=== PATIENT | female | born 1940 | race Caucasian/White ===

== ENCOUNTER 2017-06-14 12:04 | Inpatient (IN) | payer MEDICARE, OTHER ==
[2017-06-14] MEDS ORDERED: Carboxymethylcellulose 0.5%/Glycerin 0.9% Ophth Soln 15 ML Bottle EYEBOTH PRN (17:22)
[2017-06-14] MEDS ORDERED: Carboxymethylcellulose Sodium 0.5% Ophth Soln 0.4 ML UD Box of 30 EYEBOTH PRN (17:22)
[2017-06-14] MEDS: Acetaminophen/HYDROcodone 325-10 MG Tab PO SCH ×2 (18:18→22:37)
[2017-06-14] MEDS: Acetaminophen 325 MG Tab PO SCH ×2 (18:21→22:37)
[2017-06-14] MEDS: Celecoxib 200 MG Cap PO SCH (21:44)
[2017-06-14] MEDS: Rivaroxaban 15 MG Tab PO SCH (21:44)
[2017-06-14] MEDS: Simvastatin 10 MG Tab PO SCH (21:52)
[2017-06-15] MEDS: Acetaminophen 325 MG Tab PO SCH ×4 (05:12→22:45)
[2017-06-15] MEDS: Acetaminophen/HYDROcodone 325-10 MG Tab PO SCH ×4 (05:13→22:45)
[2017-06-15] MEDS: Anastrozole 1 MG Tab PO SCH (08:59)
[2017-06-15] MEDS: Calcium Carbonate/Vitamin D3 1250 MG-200 Unit Tab PO SCH (08:59)
[2017-06-15] MEDS: Levothyroxine 150 MCG Tab PO SCH (08:59)
[2017-06-15] MEDS: Pantoprazole 40 MG Tab.CR PO SCH (08:59)
[2017-06-15] MEDS: Furosemide 40 MG Tab PO SCH (09:00)
[2017-06-15] MEDS: Polyethylene Glycol 3350 Powder 17 GM Packet PO SCH (09:00)
[2017-06-15] MEDS: Calcitriol 0.25 MCG Cap PO SCH (09:00)
[2017-06-15] MEDS: Celecoxib 200 MG Cap PO SCH ×2 (09:00→20:49)
[2017-06-15] MEDS: Rivaroxaban 15 MG Tab PO SCH ×2 (09:01→20:49)
--- NOTE | 2017-06-15 09:28 | PCM.HP ---
H&P History of Present Illness - General Date of Service: 06/15/17 Admit Problem/Dx: Admission Diagnosis/Problem Admission Diagnosis/Problem Arthroplasty of knee Source of Information: Patient, Old Records History Limitations: Reports: No Limitations - History of Present Illness Initial Comments - Free Text/Narative: This is a 76-year-old female [facility] which was been admitted to the transitional care unit] sitting bed] for physical training and rehabilitation. She had right knee total replacement recently in [place]. She complains of mild pain and soreness but is otherwise healthy. Has a history of morbid obesity, obstructive sleep apnea and hyperlipidemia well controlled. Right Knee Pain Score (Numeric/FACES): 6 - Related Data Allergies/Adverse Reactions: Allergies Allergy/AdvReac Type Severity Reaction Status Date / Time magnesium Allergy Diarrhea Verified 06/14/17 14:22 Home Medications: Home Meds Acetaminophen [Tylenol] 325 mg PO Q6H 06/14/17 [History] Anastrozole [Arimidex] 1 mg PO DAILY 06/14/17 [History] [place]/Mag Citrate 20mg/100mg 2 tab PO DAILY 06/14/17 [History] Calcitriol 0.5 mcg PO DAILY 06/14/17 [History] Calcium Carbonate/Vitamin D3 [Calcium 600 + Vit D 200] 2 tab PO DAILY 06/14/17 [ History] Carboxymethylcellulos/Glycerin [Refresh Optive] 1 drop EYEBOTH BEDTIME PRN 06/14 [History] Carboxymethylcellulose Sodium [Refresh Plus 0.5% Ophth Soln] 1 - 2 drp EYEBOTH ASDIRECTED PRN 06/14/17 [History] Celecoxib [CeleBREX] 200 mg PO BID 06/14/17 [History] Eyelid Cleanser Comb No.7 [Ocusoft Lid Scrub] 1 each TP DAILY 06/14/17 [History] Furosemide [Lasix] 40 mg PO DAILY 06/14/17 [History] Hydrocodone/Acetaminophen [Hydrocodon-Acetaminophn 10-325] 1 tab PO Q6H [History] Levothyroxine 150 mcg PO ACBREAKFAST 06/14/17 [History] Pantoprazole [ProTONIX] 40 mg PO ACBREAKFAST 06/14/17 [History] Polyethylene Glycol 3350 [MiraLAX] 17 gm PO DAILY 06/14/17 [History] Rivaroxaban [Xarelto] 15 mg PO Q12H 06/14/17 [History] Sennosides/Docusate Sodium [Senna S Tablet] 1 tab PO BID 06/14/17 [History] Simvastatin [Zocor] 5 mg PO BEDTIME 06/14/17 [History] Zoledronic Acid [Zometa] 1 dose IV ASDIRECTED 06/14/17 [History] fentaNYL [Duragesic] 12 mcg TD Q72H 06/14/17 [History] Past Medical History HEENT History: Reports: None Cardiovascular History: Reports: High Cholesterol Other Cardiovascular History: "enlarged hear", peripheral edema Respiratory History: Reports: Other (See Below) Other Respiratory History: obstructive sleep apnea uses CPAP, recent hx of PE in 01/15 was on Xarelto which was held 1 1/2wk before surgery and restarted post op Other OB/BYN History: hysterectomy Musculoskeletal History: Reports: Arthritis Other Neuro History: right arm numbness due to thyroidectomy and lymph node removal--states BP and lab work can be taken from this arm Endocrine/Metabolic History: Reports: Hypothyroidism Other Oncologic History: thyroid, 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 Other Dermatologic History: eczema right ear - Past Surgical History HEENT Surgical History: Reports: Cataract Surgery Other HEENT Surgeries/Procedures: bilateral cataract, dry eyes Cardiovascular Surgical History: Reports: None Respiratory Surgical History: Reports: None GI Surgical History: Reports: Cholecystectomy Endocrine Surgical History: Reports: Thyroidectomy, Other (See Below) Other Endocrine Surgeries/Procedures: thyroidectomy with 60 lympth nodes removed Neurological Surgical History: Reports: None Musculoskeletal Surgical History: Reports: Knee Replacement Other Musculoskeletal Surgeries/Procedures:: achilles tendon repair, bilteral knee replacement, right shoulder replacement Social & Family History - Family History Endocrine/Metabolic: Reports: Diabetes, type II - Tobacco Use Smoking Status *Q: Never Smoker Second Hand Smoke Exposure: No - Caffeine Use Caffeine Use: Reports: None - Recreational Drug Use Recreational Drug Use: No H&P Review of Systems - Review of Systems: Review Of Systems: ROS reveals no pertinent complaints other than HPI. Exam - Exam Exam: See Below - Vital Signs Vital Signs: Last Vital Signs Temp 99.2 F 06/14/17 14:15 Pulse 85 06/14/17 14:15 Resp 20 06/14/17 14:15 BP 116/64 06/14/17 14:15 Pulse Ox 92 L 06/14/17 14:15 Weight: 122.47 kg - Exam General: Alert, Oriented, 4 HEENT: PERRLA, Hearing Intact, Mucosa Moist & [place], Nares Patent, Normal Nasal Septum, Posterior Pharynx Clear, Conjunctiva Clear, EOMI, EACs Clear, TMs Clear Neck: Supple, Trachea Midline, 2 Lungs: Clear to Auscultation, Normal Respiratory Effort Cardiovascular: Regular Rate, Regular Rhythm GI/Abdominal Exam: Normal Bowel Sounds, Soft, Non-Tender, No Organomegaly, No Distention, No Abnormal Bruit, No Mass, Pelvis Stable (Female) Exam: Deferred Rectal (Female) Exam: Deferred Back Exam: Normal Inspection, Full Range of Motion, NT Extremities: Normal Inspection, Normal Range of Motion, Non-Tender, No Pedal Edema, Normal Capillary Refill Skin: Warm, Dry, Intact Neurological: Cranial Nerves Intact, Reflexes Equal Bilateral Neuro Extensive - Mental Status: Alert, Oriented x3, Normal Mood/Affect, Normal Cognition Neuro Extensive - Motor, Sensory, Reflexes: CN II-XII Intact, Normal Gait, Normal Reflexes Psychiatric: Alert, Normal Affect, Normal Mood *Q Meaningful Use (ADM) - VTE *Q VTE Criteria *Q: - Stroke *Q Stroke Criteria *Q: - AMI *Q AMI Criteria *Q: - Problem List (1) S/P knee replacement SNOMED Code(s): 119715083 ICD Code: Z96.659 - PRESENCE OF UNSPECIFIED ARTIFICIAL KNEE JOINT Status: Acute Current Visit: Yes (2) Obesities, morbid SNOMED Code(s): 962445875, 98479161788275 ICD Code: E66.01 - MORBID (SEVERE) OBESITY DUE TO EXCESS CALORIES Status: Acute Current Visit: Yes (3) KAMI (obstructive sleep apnea) SNOMED Code(s): 45292861 ICD Code: G47.33 - OBSTRUCTIVE SLEEP APNEA (ADULT) (PEDIATRIC) Status: Acute Current Visit: Yes (4) Hyperlipidemia SNOMED Code(s): 07566457 ICD Code: E78.5 - HYPERLIPIDEMIA, UNSPECIFIED Status: Acute Current Visit : Yes Qualifiers: Hyperlipidemia type: pure hypercholesterolemia Qualified Code(s): E78.00 - Pure hypercholesterolemia, unspecified; E78.0 - Pure hypercholesterolemia (5) History of pulmonary embolus (PE) SNOMED Code(s): 160657172 ICD Code: Z86.711 - PERSONAL HISTORY OF PULMONARY EMBOLISM Status: Acute Current Visit: Yes Problem List Initiated/Reviewed/Updated: Yes Orders Last 24hrs: Active Orders 24 hr Category Date Time Status Admission Status [Patient Status] [ADT] Routine ADT 06/14/17 13:17 Active Elevate Extremity [RC] BID Care 06/14/17 16:00 Active Height and Weight [RC] MO Care 06/14/17 17:21 Active May Shower [RC] MOTH Care 06/14/17 14:54 Active Oxygen Therapy [RC] PRN Care 06/14/17 17:21 Active Up With Assistance [RC] ASDIRECTED Care 06/14/17 17:21 Active VTE/DVT Education [RC] Per Unit Routine Care 06/14/17 17:21 Active Vital Signs [RC] 08 Care 06/14/17 17:21 Active Wound Care [RC] 08 Care 06/14/17 14:54 Active OT Evaluation and Treatment [CONS] Routine Cons 06/14/17 14:54 Active PT Evaluation and Treatment [CONS] Routine Cons 06/14/17 14:54 Active Regular Diet [DIET] Diet 06/14/17 Dinner Active Acetaminophen [Tylenol] Med 06/14/17 17:30 Active 325 mg PO Q6H Acetaminophen/HYDROcodone [[place] 325-10 MG] Med 06/14/17 17:30 Active 1 tab PO Q6H Anastrozole [Arimidex] Med 06/15/17 09:00 Active 1 mg PO DAILY Calcitriol [Rocaltrol] Med 06/15/17 09:00 Active 0.5 mcg PO DAILY Calcium Carbonate/Vitamin D3 [Calcium Carbonate/Vitamin Med 06/15/17 09:00 Active D 1250 MG-200 Unit] 2 tab PO DAILY Carboxymethylcellulos/Glycerin [Refresh Optive] Med 06/14/17 17:22 Active 0 ml EYEBOTH BEDTIME PRN Carboxymethylcellulose Sodium [Refresh Plus 0.5%] Med 06/14/17 17:22 Active 0 each EYEBOTH ASDIRECTED PRN Celecoxib [CeleBREX] Med 06/14/17 21:00 Active 200 mg PO BID Docusate Sodium/Sennosides [Senna Plus] Med 06/14/17 21:00 Active 1 tab PO BID Eyelid Cleanser [Ocusoft Lid Scrub Plus] Med 06/15/17 09:00 Active 1 pad TP DAILY Furosemide [Lasix] Med 06/15/17 09:00 Active 40 mg PO DAILY Levothyroxine Med 06/15/17 07:30 Active 150 mcg PO ACBREAKFAST Pantoprazole [ProTONIX] Med 06/15/17 07:30 Active 40 mg PO ACBREAKFAST Polyethylene Glycol 3350 [MiraLAX] Med 06/15/17 09:00 Active 17 gm PO DAILY Rivaroxaban [Xarelto] Med 06/14/17 21:00 Active 15 mg PO Q12H Simvastatin [Zocor] Med 06/14/17 22:00 Active 5 mg PO BEDTIME Zoledronic Acid [Zometa] Med 11/20/17 09:00 Active 1 dose IV Q180D fentaNYL [Duragesic] Med 06/16/17 09:00 Active 12 mcg TRDERM Q72H Ice Therapy [OM.PC] Routine Oth 06/14/17 14:54 Ordered Weight bearing status [OM.PC] Routine Oth 06/14/17 14:54 Ordered Resuscitation Status Routine Resus Stat 06/14/17 17:21 Ordered Medication Orders Acetaminophen (Tylenol) 325 mg PO Q6H MISAEL Last Admin: 06/15/17 05:12 Dose: 325 mg Admin: 06/14/17 22:37 Dose: 325 mg Admin: 06/14/17 18:21 Dose: 325 mg Hydrocodone Bitart/Acetaminophen ([place] 325-10 Mg) 1 tab PO Q6H MISAEL Last Admin: 06/15/17 05:13 Dose: 1 tab Admin: 06/14/17 22:37 Dose: 1 tab Admin: 06/14/17 18:18 Dose: 1 tab Anastrozole (Arimidex) 1 mg PO DAILY [facility]ISA[facility] Last Admin: 06/15/17 08:59 Dose: 1 mg Artificial Tears (Refresh Plus 0.5%) 0 each EYEBOTH ASDIRECTED PRN PRN Reason: Dry Eyes Last Admin: 06/15/17 09:02 Dose: 1 drop Calcitriol (Rocaltrol) 0.5 mcg PO DAILY [facility] Last Admin: 06/15/17 09:00 Dose: 0.5 mcg Calcium Carbonate (Calcium Carbonate/Vitamin D 1250 Mg-200 Unit) 2 tab PO DAILY [facility] Last Admin: 06/15/17 08:59 Dose: 2 tab Carboxymethylcellulose (Refresh Optive) 0 ml EYEBOTH BEDTIME PRN PRN Reason: Dry Eyes Celecoxib (Celebrex) 200 mg PO BID [facility] Last Admin: 06/15/17 09:00 Dose: 200 mg Admin: 06/14/17 21:44 Dose: 200 mg Eye Cleanser (Ocusoft Lid Scrub Plus) 1 pad TP DAILY [facility] Fentanyl (Duragesic) 12 mcg TRDERM Q72H [facility] Furosemide (Lasix) 40 mg PO DAILY [facility] Last Admin: 06/15/17 09:00 Dose: 40 mg Levothyroxine Sodium (Levothyroxine) 150 mcg PO ACBREAKFAST [facility] Last Admin: 06/15/17 08:59 Dose: 150 mcg Non-Formulary Medication (Zoledronic Acid [Zometa]) 1 dose IV Q180D [facility] Pantoprazole Sodium (Protonix) 40 mg PO ACBREAKFAST [facility] Last Admin: 06/15/17 08:59 Dose: 40 mg Polyethylene Glycol (Miralax) 17 gm PO DAILY [facility] Last Admin: 06/15/17 09:00 Dose: Not Given Rivaroxaban (Xarelto) 15 mg PO Q12H [facility] Last Admin: 06/15/17 09:01 Dose: 15 mg Admin: 06/14/17 21:44 Dose: 15 mg Senna/Docusate Sodium (Senna Plus) 1 tab PO BID [facility] Last Admin: 06/15/17 09:01 Dose: 1 tab Admin: 06/14/17 21:44 Dose: 1 tab Simvastatin (Zocor) 5 mg PO BEDTIME [facility] Last Admin: 06/14/17 21:52 Dose: 5 mg Assessment/Plan Comment:: We'll continue with physical strengthening. And the home medications. She's currently on 50 mg of Zestril to twice a day after 18 days according to the orthopedic guidelines will revert back to the 20 mg she takes for h/o PE. I will slowly started on aspirin. Pain is being controlled by Duragesic patch which be discontinued in 3 days she'll go to hydrocodone as needed.
[2017-06-15] MEDS: Eyelid Cleanser Pads, 30 per Box TP SCH (11:04)
[2017-06-15] MEDS: Aspirin 81 MG Tab.EC PO SCH (11:06)
[2017-06-15] MEDS: Simvastatin 10 MG Tab PO SCH (20:49)
[2017-06-16] MEDS: Acetaminophen/HYDROcodone 325-10 MG Tab PO SCH ×4 (05:57→23:59)
[2017-06-16] MEDS: Acetaminophen 325 MG Tab PO SCH ×4 (05:58→23:59)
[2017-06-16] MEDS: Levothyroxine 150 MCG Tab PO SCH (08:20)
[2017-06-16] MEDS: Pantoprazole 40 MG Tab.CR PO SCH (08:20)
[2017-06-16] MEDS ORDERED: fentaNYL 12 MCG/HR Transdermal Patch TRDERM SCH (09:00)
[2017-06-16] MEDS: Anastrozole 1 MG Tab PO SCH (10:35)
[2017-06-16] MEDS: Calcium Carbonate/Vitamin D3 1250 MG-200 Unit Tab PO SCH (10:36)
[2017-06-16] MEDS: Celecoxib 200 MG Cap PO SCH ×2 (10:37→21:05)
[2017-06-16] MEDS: Aspirin 81 MG Tab.EC PO SCH (10:40)
[2017-06-16] MEDS: Polyethylene Glycol 3350 Powder 17 GM Packet PO SCH ×2 (10:40→10:45)
[2017-06-16] MEDS: Furosemide 40 MG Tab PO SCH (10:40)
[2017-06-16] MEDS: Calcitriol 0.25 MCG Cap PO SCH (10:41)
[2017-06-16] MEDS: Eyelid Cleanser Pads, 30 per Box TP SCH (10:41)
[2017-06-16] MEDS: Rivaroxaban 15 MG Tab PO SCH ×2 (10:42→21:06)
[2017-06-16] MEDS: Simvastatin 10 MG Tab PO SCH (21:06)
[2017-06-17] MEDS: Acetaminophen/HYDROcodone 325-10 MG Tab PO SCH ×4 (05:59→22:42)
[2017-06-17] MEDS: Acetaminophen 325 MG Tab PO SCH ×4 (05:59→22:43)
[2017-06-17] MEDS: Pantoprazole 40 MG Tab.CR PO SCH (07:06)
[2017-06-17] MEDS: Levothyroxine 150 MCG Tab PO SCH (07:07)
[2017-06-17] MEDS: Anastrozole 1 MG Tab PO SCH (08:34)
[2017-06-17] MEDS: Polyethylene Glycol 3350 Powder 17 GM Packet PO SCH (08:35)
[2017-06-17] MEDS: Eyelid Cleanser Pads, 30 per Box TP SCH (08:35)
[2017-06-17] MEDS: Calcium Carbonate/Vitamin D3 1250 MG-200 Unit Tab PO SCH (08:35)
[2017-06-17] MEDS: Aspirin 81 MG Tab.EC PO SCH (08:35)
[2017-06-17] MEDS: Furosemide 40 MG Tab PO SCH (08:35)
[2017-06-17] MEDS: Celecoxib 200 MG Cap PO SCH ×2 (08:35→20:19)
[2017-06-17] MEDS: Calcitriol 0.25 MCG Cap PO SCH (08:36)
[2017-06-17] MEDS: Rivaroxaban 15 MG Tab PO SCH ×2 (08:36→20:20)
[2017-06-17] MEDS: Simvastatin 10 MG Tab PO SCH (20:21)
[2017-06-18] MEDS: Acetaminophen/HYDROcodone 325-10 MG Tab PO SCH ×3 (05:33→17:06)
[2017-06-18] MEDS: Acetaminophen 325 MG Tab PO SCH ×3 (05:34→17:06)
[2017-06-18] MEDS: Levothyroxine 150 MCG Tab PO SCH (07:20)
[2017-06-18] MEDS: Pantoprazole 40 MG Tab.CR PO SCH (07:23)
[2017-06-18] MEDS: Celecoxib 200 MG Cap PO SCH ×2 (09:04→21:14)
[2017-06-18] MEDS: Aspirin 81 MG Tab.EC PO SCH (09:04)
[2017-06-18] MEDS: Anastrozole 1 MG Tab PO SCH (09:04)
[2017-06-18] MEDS: Calcium Carbonate/Vitamin D3 1250 MG-200 Unit Tab PO SCH (09:04)
[2017-06-18] MEDS: Furosemide 40 MG Tab PO SCH (09:04)
[2017-06-18] MEDS: Polyethylene Glycol 3350 Powder 17 GM Packet PO SCH (09:05)
[2017-06-18] MEDS: Rivaroxaban 15 MG Tab PO SCH ×2 (09:05→21:16)
[2017-06-18] MEDS: Eyelid Cleanser Pads, 30 per Box TP SCH (09:05)
[2017-06-18] MEDS: Calcitriol 0.25 MCG Cap PO SCH (09:05)
[2017-06-18] MEDS: Simvastatin 10 MG Tab PO SCH (21:17)
[2017-06-19] MEDS: Acetaminophen/HYDROcodone 325-10 MG Tab PO SCH ×5 (00:05→22:31)
[2017-06-19] MEDS: Acetaminophen 325 MG Tab PO SCH ×5 (00:06→22:32)
[2017-06-19] MEDS: Levothyroxine 150 MCG Tab PO SCH (07:27)
[2017-06-19] MEDS: Pantoprazole 40 MG Tab.CR PO SCH (07:28)
[2017-06-19] MEDS: Calcium Carbonate/Vitamin D3 1250 MG-200 Unit Tab PO SCH (09:18)
[2017-06-19] MEDS: Aspirin 81 MG Tab.EC PO SCH (09:19)
[2017-06-19] MEDS: Celecoxib 200 MG Cap PO SCH ×2 (09:19→22:31)
[2017-06-19] MEDS: Furosemide 40 MG Tab PO SCH (09:19)
[2017-06-19] MEDS: Calcitriol 0.25 MCG Cap PO SCH (09:20)
[2017-06-19] MEDS: Polyethylene Glycol 3350 Powder 17 GM Packet PO SCH (09:20)
[2017-06-19] MEDS: Eyelid Cleanser Pads, 30 per Box TP SCH (09:20)
[2017-06-19] MEDS: Rivaroxaban 15 MG Tab PO SCH ×2 (09:21→22:31)
[2017-06-19] MEDS: Anastrozole 1 MG Tab PO SCH (09:24)
[2017-06-19] MEDS: Simvastatin 10 MG Tab PO SCH (22:31)
[2017-06-20] MEDS: Acetaminophen/HYDROcodone 325-10 MG Tab PO SCH (04:32)
[2017-06-20] MEDS: Acetaminophen 325 MG Tab PO SCH ×4 (04:34→23:08)
[2017-06-20] MEDS: Pantoprazole 40 MG Tab.CR PO SCH (07:37)
[2017-06-20] MEDS: Levothyroxine 150 MCG Tab PO SCH (07:37)
[2017-06-20] MEDS ORDERED: Ondansetron 4 MG Tab.DIS PO PRN (08:58)
[2017-06-20] MEDS: Calcium Carbonate/Vitamin D3 1250 MG-200 Unit Tab PO SCH (09:54)
[2017-06-20] MEDS: Anastrozole 1 MG Tab PO SCH (09:54)
[2017-06-20] MEDS: Celecoxib 200 MG Cap PO SCH ×2 (09:55→21:26)
[2017-06-20] MEDS: Furosemide 40 MG Tab PO SCH (09:55)
[2017-06-20] MEDS: Aspirin 81 MG Tab.EC PO SCH (09:55)
[2017-06-20] MEDS: Polyethylene Glycol 3350 Powder 17 GM Packet PO SCH (09:55)
[2017-06-20] MEDS: Eyelid Cleanser Pads, 30 per Box TP SCH (09:55)
[2017-06-20] MEDS: Calcitriol 0.25 MCG Cap PO SCH (09:56)
[2017-06-20] MEDS: Rivaroxaban 15 MG Tab PO SCH ×2 (09:56→21:26)
--- NOTE | 2017-06-20 16:43 | PCM.PN ---
- General Info Date of Service: 06/20/17 Admission Dx/Problem (Free Text): Pain has stiff right knee. Some nausea with the pain pill. - Patient Data Vitals - Most Recent: Last Vital Signs Temp 98.4 F 06/20/17 08:50 Pulse 62 06/20/17 08:50 Resp 20 06/20/17 08:50 BP 132/62 06/20/17 08:50 Pulse Ox 94 L 06/20/17 08:50 Weight - Most Recent: 270 lb I&O - Last 24 Hours: Intake & Output 06/20/17 06/20/17 06/20/17 06:59 14:59 22:59 Intake Total 880 Balance 880 Med Orders - Current: Current Medications Acetaminophen (Tylenol) 325 mg PO Q6H [facility] Last Admin: 06/20/17 12:15 Dose: 325 mg Hydrocodone Bitart/Acetaminophen ([place] 325-10 Mg) 1 tab PO Q6H PRN PRN Reason: Pain Anastrozole (Arimidex) 1 mg PO DAILY [facility] Last Admin: 06/20/17 09:54 Dose: 1 mg Artificial Tears (Refresh Plus 0.5%) 0 each EYEBOTH ASDIRECTED PRN PRN Reason: Dry Eyes Last Admin: 06/15/17 09:02 Dose: 1 drop Aspirin (Halfprin) 81 mg PO DAILY [facility] Last Admin: 06/20/17 09:55 Dose: 81 mg Calcitriol (Rocaltrol) 0.5 mcg PO DAILY [facility] Last Admin: 06/20/17 09:56 Dose: 0.5 mcg Calcium Carbonate (Calcium Carbonate/Vitamin D 1250 Mg-200 Unit) 2 tab PO DAILY [facility] Last Admin: 06/20/17 09:54 Dose: 2 tab Carboxymethylcellulose (Refresh Optive) 0 ml EYEBOTH BEDTIME PRN PRN Reason: Dry Eyes Last Admin: 06/17/17 08:36 Dose: 1 drop Celecoxib (Celebrex) 200 mg PO BID [facility] Stop: 06/22/17 09:01 Last Admin: 06/20/17 09:55 Dose: 200 mg Eye Cleanser (Ocusoft Lid Scrub Plus) 1 pad TP DAILY [facility] Last Admin: 06/20/17 09:55 Dose: Not Given Furosemide (Lasix) 40 mg PO DAILY [facility] Last Admin: 08/20/17 09:55 Dose: 40 mg Levothyroxine Sodium (Levothyroxine) 150 mcg PO ACBREAKFAST [facility] Last Admin: 06/20/17 07:37 Dose: 150 mcg Non-Formulary Medication (Zoledronic Acid [Zometa]) 1 dose IV Q180D [facility] Ondansetron HCl (Zofran Odt) 4 mg PO Q6H PRN PRN Reason: Nausea/Vomiting Last Admin: 06/20/17 09:52 Dose: 4 mg Pantoprazole Sodium (Protonix) 40 mg PO ACBREAKFAST [facility] Last Admin: 06/20/17 07:37 Dose: 40 mg Polyethylene Glycol (Miralax) 17 gm PO DAILY [facility] Last Admin: 06/20/17 09:55 Dose: Not Given Rivaroxaban (Xarelto) 15 mg PO Q12H [facility] Stop: 07/02/17 09:01 Last Admin: 06/20/17 09:56 Dose: 15 mg Senna/Docusate Sodium (Senna Plus) 1 tab PO BID [facility] Last Admin: 06/20/17 09:56 Dose: 1 tab Simvastatin (Zocor) 5 mg PO BEDTIME [facility] Last Admin: 06/19/17 22:31 Dose: 5 mg Discontinued Medications Hydrocodone Bitart/Acetaminophen ([place] 325-10 Mg) 1 tab PO Q6H [facility] Last Admin: 06/20/17 04:32 Dose: 1 tab Fentanyl (Duragesic) 12 mcg TRDERM Q72H [facility] Stop: 06/19/17 08:59 Last Admin: 06/16/17 10:38 Dose: 12 mcg Miscellaneous Information (Remove Patch) 1 ea TRDERM ONETIME ONE Stop: 06/19/17 09:01 Last Admin: 06/19/17 09:23 Dose: 1 ea Simvastatin (Zocor) 5 mg PO BEDTIME [facility] Last Admin: 06/14/17 22:07 Dose: Not Given - Exam General: Alert, Oriented, Cooperative Extremities: No Pedal Edema Skin: Other (WOund with no Erytema or wound drainage.) - Problem List & Annotations (1) S/P knee replacement SNOMED Code(s): 534409705 Code(s): Z96.659 - PRESENCE OF UNSPECIFIED ARTIFICIAL KNEE JOINT Status: Acute Current Visit: Yes - Problem List Review Problem List Initiated/Reviewed/Updated: Yes - My Orders Last 24 Hours: My Active Orders 06/20/17 08:58 Ondansetron [Zofran ODT] 4 mg PO Q6H PRN - Plan Plan:: Continue current care.
[2017-06-20] MEDS: Simvastatin 10 MG Tab PO SCH (21:26)
[2017-06-20] MEDS: Acetaminophen/HYDROcodone 325-10 MG Tab PO PRN (21:40)
[2017-06-21] MEDS: Acetaminophen 325 MG Tab PO SCH ×2 (06:28→13:37)
[2017-06-21] MEDS: Celecoxib 200 MG Cap PO SCH (08:06)
[2017-06-21] MEDS: Anastrozole 1 MG Tab PO SCH (08:06)
[2017-06-21] MEDS: Rivaroxaban 15 MG Tab PO SCH (08:06)
[2017-06-21] MEDS: Furosemide 40 MG Tab PO SCH (08:06)
[2017-06-21] MEDS: Aspirin 81 MG Tab.EC PO SCH (08:07)
[2017-06-21] MEDS: Calcium Carbonate/Vitamin D3 1250 MG-200 Unit Tab PO SCH (08:07)
[2017-06-21] MEDS: Calcitriol 0.25 MCG Cap PO SCH (08:07)
[2017-06-21] MEDS: Eyelid Cleanser Pads, 30 per Box TP SCH (08:08)
[2017-06-21] MEDS: Polyethylene Glycol 3350 Powder 17 GM Packet PO SCH (08:08)
[2017-06-21] MEDS: Acetaminophen/HYDROcodone 325-10 MG Tab PO PRN (08:10)
[2017-06-21] MEDS: Levothyroxine 150 MCG Tab PO SCH (08:24)
[2017-06-21] MEDS: Pantoprazole 40 MG Tab.CR PO SCH (08:24)
--- NOTE | 2017-06-21 09:52 | PCM.DCSUM1 ---
Discharge Summary - Hospital Course Free Text/Narrative:: Patient was placed in [place] for swing bed. Patient did well with PT/OT and was walking. She was anticoagulated was xeralto. Pain was controlled with Duragesic patch and hydrocodone. She met all her goals will be discharged to home with PT/OT/home health. Duragesic will be stopped and hydrocodone for pain. Brief History: This is a 76-year-old female [facility] which was been admitted to the transitional care unit] sitting bed] for physical training and rehabilitation. She had right knee total replacement recently in [place]. She complains of mild pain and soreness but is otherwise healthy. Has a history of morbid obesity, obstructive sleep apnea and hyperlipidemia well controlled. - Discharge Data Discharge Date: 06/21/17 Discharge Disposition: Home, W Home Health Agency 06 Condition: Good - Discharge Diagnosis/Problem(s) (1) S/P knee replacement SNOMED Code(s): 620169183 ICD Code: Z96.659 - PRESENCE OF UNSPECIFIED ARTIFICIAL KNEE JOINT Status: Acute Current Visit: Yes - Patient Summary/Data Consults: Consultations 06/14/17 14:54 OT Evaluation and Treatment [CONS] Routine Please Evaluate and Treat. OT Reason for Consult: Strengthening This query below is only for informational purposes and is not editable. Admission Diagnosis/Problem: Arthroplasty of knee PT Evaluation and Treatment [CONS] Routine Please Evaluate and Treat. PT Reason for Consult: Post op Ortho Surgery This query below is only for informational purposes and is not editable. Admission Diagnosis/Problem: Arthroplasty of knee 06/16/17 08:02 PT Evaluation and Treatment [CONS] Routine Please Evaluate and Treat. PT Reason for Consult: Other (Type Response) Special Instructions: CPM: PT to initiate and regulate This query below is only for informational purposes and is not editable. Admission Diagnosis/Problem: Arthroplasty of knee - Patient Instructions Diet: Regular Diet as Tolerated Activity: As Tolerated Driving: Do Not Drive Showering/Bathing: May Shower Notify Provider of: Increased Pain, Swelling and Redness, Drainage Other/Special Instructions: 1. Recheck with orthopedics [facility] scheduled appointment. 2. Home health/PT/OT in regards to medication management, home safety, rehabilitation for knee, these management. - Discharge Plan Prescriptions/Med Rec: Hydrocodone/Acetaminophen [Hydrocodon-Acetaminophn 10-325] 1 tab PO Q6H #60 tablet Rivaroxaban [Xarelto] 15 mg PO Q12H #22 tablet Home Medications: Home Meds Acetaminophen [Tylenol] 325 mg PO Q6H 06/14/17 [History] Anastrozole [Arimidex] 1 mg PO DAILY 06/14/17 [History] [place]/Mag Citrate 20mg/100mg 2 tab PO DAILY 06/14/17 [History] Calcitriol 0.5 mcg PO DAILY 06/14/17 [History] Calcium Carbonate/Vitamin D3 [Calcium 600 + Vit D 200] 2 tab PO DAILY 06/14/17 [ History] Carboxymethylcellulos/Glycerin [Refresh Optive] 1 drop EYEBOTH BEDTIME PRN 06/14 [History] Carboxymethylcellulose Sodium [Refresh Plus 0.5%] 1 - 2 drp EYEBOTH ASDIRECTED PRN 06/14/17 [History] Celecoxib [CeleBREX] 200 mg PO BID 06/14/17 [History] Eyelid Cleanser Comb No.7 [Ocusoft Lid Scrub] 1 each TP DAILY 06/14/17 [History] Furosemide [Lasix] 40 mg PO DAILY 06/14/17 [History] Levothyroxine 150 mcg PO ACBREAKFAST 06/14/17 [History] Pantoprazole [ProTONIX] 40 mg PO ACBREAKFAST 06/14/17 [History] Polyethylene Glycol 3350 [MiraLAX] 17 gm PO DAILY 06/14/17 [History] Sennosides/Docusate Sodium [Senna S Tablet] 1 tab PO BID 06/14/17 [History] Simvastatin [Zocor] 5 mg PO BEDTIME 06/14/17 [History] Zoledronic Acid [Zometa] 1 dose IV ASDIRECTED 06/14/17 [History] Hydrocodone/Acetaminophen [Hydrocodon-Acetaminophn 10-325] 1 tab PO Q6H #60 tablet 06/21/17 [Rx] Rivaroxaban [Xarelto] 15 mg PO Q12H #22 tablet 06/21/17 [Rx] Patient Handouts: Fall Prevention in Hospitals, Adult, Venous Thromboembolism Prevention - Discharge Summary/Plan Comment DC Time >30 min.: No - Patient Data Vitals - Most Recent: Last Vital Signs Temp 98.4 F 06/20/17 08:50 Pulse 62 06/20/17 08:50 Resp 20 06/20/17 08:50 BP 132/62 06/20/17 08:50 Pulse Ox 94 L 06/20/17 08:50 Weight - Most Recent: 270 lb Med Orders - Current: Current Medications Acetaminophen (Tylenol) 325 mg PO Q6H [facility] Last Admin: 06/21/17 06:28 Dose: 325 mg Hydrocodone Bitart/Acetaminophen ([place] 325-10 Mg) 1 tab PO Q6H PRN PRN Reason: Pain Last Admin: 06/21/17 08:10 Dose: 1 tab Anastrozole (Arimidex) 1 mg PO DAILY [facility] Last Admin: 06/21/17 08:06 Dose: 1 mg Artificial Tears (Refresh Plus 0.5%) 0 each EYEBOTH ASDIRECTED PRN PRN Reason: Dry Eyes Last Admin: 06/15/17 09:02 Dose: 1 drop Aspirin (Halfprin) 81 mg PO DAILY [facility] Last Admin: 06/21/17 08:07 Dose: 81 mg Calcitriol (Rocaltrol) 0.5 mcg PO DAILY [facility] Last Admin: 06/21/17 08:07 Dose: 0.5 mcg Calcium Carbonate (Calcium Carbonate/Vitamin D 1250 Mg-200 Unit) 2 tab PO DAILY [facility] Last Admin: 06/21/17 08:07 Dose: 2 tab Carboxymethylcellulose (Refresh Optive) 0 ml EYEBOTH BEDTIME PRN PRN Reason: Dry Eyes Last Admin: 06/17/17 08:36 Dose: 1 drop Celecoxib (Celebrex) 200 mg PO BID [facility] Stop: 06/22/17 09:01 Last Admin: 06/21/17 08:06 Dose: 200 mg Eye Cleanser (Ocusoft Lid Scrub Plus) 1 pad TP DAILY [facility] Last Admin: 06/21/17 08:08 Dose: 1 applic Furosemide (Lasix) 40 mg PO DAILY [facility] Last Admin: 06/21/17 08:06 Dose: 40 mg Levothyroxine Sodium (Levothyroxine) 150 mcg PO ACBREAKFAST [facility] Last Admin: 06/21/17 08:24 Dose: 150 mcg Non-Formulary Medication (Zoledronic Acid [Zometa]) 1 dose IV Q180D [facility] Ondansetron HCl (Zofran Odt) 4 mg PO Q6H PRN PRN Reason: Nausea/Vomiting Last Admin: 06/20/17 09:52 Dose: 4 mg Pantoprazole Sodium (Protonix) 40 mg PO ACBREAKFAST [facility] Last Admin: 06/21/17 08:24 Dose: 40 mg Polyethylene Glycol (Miralax) 17 gm PO DAILY [facility] Last Admin: 06/21/17 08:08 Dose: 17 gm Rivaroxaban (Xarelto) 15 mg PO Q12H [facility] Stop: 07/02/17 09:01 Last Admin: 06/21/17 08:06 Dose: 15 mg Senna/Docusate Sodium (Senna Plus) 1 tab PO BID [facility] Last Admin: 06/21/17 08:06 Dose: 1 tab Simvastatin (Zocor) 5 mg PO BEDTIME [facility] Last Admin: 06/20/17 21:26 Dose: 5 mg Discontinued Medications Hydrocodone Bitart/Acetaminophen ([place] 325-10 Mg) 1 tab PO Q6H [facility] Last Admin: 06/20/17 04:32 Dose: 1 tab Fentanyl (Duragesic) 12 mcg TRDERM Q72H [facility] Stop: 06/19/17 08:59 Last Admin: 06/16/17 10:38 Dose: 12 mcg Miscellaneous Information (Remove Patch) 1 ea TRDERM ONETIME ONE Stop: 06/19/17 09:01 Last Admin: 06/19/17 09:23 Dose: 1 ea Simvastatin (Zocor) 5 mg PO BEDTIME [facility] Last Admin: 06/14/17 22:07 Dose: Not Given *Q Meaningful Use (DIS) - VTE *Q VTE Criteria *Q: - Stroke *Q Stroke Criteria *Q: - AMI *Q AMI Criteria *Q:
[2017-06-21 11:31] VITALS: BP 109/57
[2017-11-20] MEDS ORDERED: ZOLEDRONIC ACID IV SCH (09:00)
== END 2017-06-21 14:35 | disposition home health service (06) | DRG 560 ==
LOC: FB.MS 13:56
PROVIDERS: ADMIT Family Medicine; ATTEND Family Medicine
DX: Z47.1 Aftercare following joint replacement surgery (principal); Z68.42 Body mass index [BMI] 45.0-49.9, adult; Z96.651 Presence of right artificial knee joint; Z96.611 Presence of right artificial shoulder joint; Z98.890 Other specified postprocedural states; E66.01 Morbid (severe) obesity due to excess calories; E78.5 Hyperlipidemia, unspecified; G47.33 Obstructive sleep apnea (adult) (pediatric); Z86.711 Personal history of pulmonary embolism; E03.9 Hypothyroidism, unspecified; M19.90 Unspecified osteoarthritis, unspecified site; Z85.850 Personal history of malignant neoplasm of thyroid; Z85.89 Personal history of malignant neoplasm of other organs and systems; Z79.01 Long term (current) use of anticoagulants; Z91.048 Other nonmedicinal substance allergy status
CPT/HCPCS: 97110-GP; 97116-GP; 97161-GP; 97165-GO; 97530-GO; 97530-GO-KX; 97530-GP; 97535-GO; A9270-GY

== ENCOUNTER 2019-02-15 07:24 | Day surgery (SDC) | payer MEDICARE, OTHER ==
[2019-02-15] MEDS ORDERED: Glycopyrrolate 0.2 MG/ML 5 ML MDV IV ONE (07:25)
[2019-02-15] MEDS ORDERED: Propofol 200 MG/20 ML SDV IV ONE (07:25)
[2019-02-15] MEDS ORDERED: Lactated Ringers 1,000 ML IV SCH (07:45)
--- NOTE | 2019-02-15 08:53 | PCM.OPNOTE ---
- General Post-Op/Procedure Note Date of Surgery/Procedure: 02/15/19 Operative Procedure(s): c scope with bx Findings: ascending colon polyp x2 descending colon polyp sigmoid colon polyp Pre Op Diagnosis: personal hx of colon polyps Post-Op Diagnosis: ascending colon polyp x2. descending colon polyp. sigmoid colon polyp Anesthesia Technique: MAC Primary Surgeon: Grant Musa Anesthesia Provider: Ulysses Swenson Pathology: ascending colon polyp x2 descending colon polyp sigmoid colon polyp Complications: None Condition: Good Free Text/Narrative:: see dictation
[2019-02-15 09:52] VITALS: BP 112/61
--- NOTE | 2019-02-15 15:29 | OR ---
DATE OF OPERATION: 02/15/2019 SURGEON: Grant Musa MD PROCEDURE PERFORMED: Colonoscopy with biopsy. PREOPERATIVE DIAGNOSIS: Personal history of colon polyps. POSTOPERATIVE DIAGNOSIS: Polyp of the ascending colon x2, polyps of the descending colon, and a sigmoid colon polyp. INDICATIONS FOR PROCEDURE: This is a 78-year-old white female, has a personal history of colon polyps, presents for followup scope. DESCRIPTION OF OPERATION: After an excellent IV sedation was administered, digital rectal exam performed. No marked abnormality noted. Flexible colonoscope inserted, advanced to the cecum. Prep was excellent, following findings noted. In the ascending colon, 2 polypoid lesions, biopsied with the hot loop snare, retrieved and submitted in one container. Transverse colon, unremarkable. Descending colon, polypoid lesion, biopsied with the biopsy forceps and submitted in a container. Distal sigmoid, another polypoid lesion, biopsied with the hot loop snare and submitted in a container. Rectum and anus, unremarkable. Results by letter. The patient tolerated the procedure well. /[id number] /MODL
== END 2019-02-15 10:04 | disposition home or self-care (01) ==
LOC: FB.SDS 07:24
PROVIDERS: ATTEND Surgery
DX: Z12.11 Encounter for screening for malignant neoplasm of colon (principal); D12.2 Benign neoplasm of ascending colon; D12.5 Benign neoplasm of sigmoid colon; K63.5 Polyp of colon; E78.00 Pure hypercholesterolemia, unspecified; E03.9 Hypothyroidism, unspecified; G47.33 Obstructive sleep apnea (adult) (pediatric); E66.01 Morbid (severe) obesity due to excess calories; Z68.42 Body mass index [BMI] 45.0-49.9, adult; Z88.8 Allergy status to other drugs, medicaments and biological substances; Z99.89 Dependence on other enabling machines and devices; Z86.010 Personal history of colon polyps; Z79.82 Long term (current) use of aspirin; Z79.899 Other long term (current) drug therapy
CPT/HCPCS: 00812; 45380; 45385; 88305; J2704; J3490; J7120